=== PATIENT | female | born 1990 | race Caucasian/White ===

== ENCOUNTER 2024-07-04 07:23 | Outpatient (AMB) | payer OTHER, SELFPAY ==
--- NOTE | 2024-07-04 07:42 | MHC.PC.OV ---
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 Required: No Accompanied by: Self / Same As Patient Allergies No Known Allergies Allergy (Verified 07/04/24 07:54) Medication List - Last Reconciled 07/04/24 by Sapphire Estrella MD desog-e.estradiol/e.estradiol 0.15-0.02 mgx21 /0.01 mg x 5 tabs PO Tobacco use date assessed: 07/04/24 Dental Screening Dental Screen Date: 07/04/24 Did you have a dental visit in the last 12 months?: Yes Did you have a dental problem in the last 6 months where you did not have access to dental care?: No Was dental information given to patient?: Patient has dentist HPI HPI Comments History of Present Illness Details The patient is a 33-year-old female presenting with mental health concerns, particularly depression and anxiety. She describes ongoing depressive symptoms inclusive of irritability, frequent crying, and a lack of motivation to perform activities despite having personal objectives. Her history includes depression treated with Zoloft, which she discontinued due to perceived inefficacy and withdrawal symptoms. She seeks to reinitiate a medication regimen with alternative antidepressants. The patient also reports a persistent itch in her right breast but no palpable lumps. She has a significant family history of breast cancer, with her mother and aunt having tested positive for the BRCA2 gene and her mother undergoing a preventative double mastectomy. The patient herself has tested negative for the BRCA2 gene. She has not experienced unusual breast changes, but her concern persists. REPLACED BY [facility] Surgical History No pertinent past surgical history Family History Father Cancer Family/Other Mental health disorder Social History Housing: House Alcohol intake: current Alcohol intake frequency: a few times a month Alcohol type: wine Patient Tobacco Use Status: Never used Tobacco e-Cigarette/Vaping Use: Never Used Second Hand Smoke Exposure: No service: No Current occupational status: employed Current occupational exposures/hazards: No Cognitive needs: No Hearing needs: No Vision needs: No Questionnaire PHQ-9 Over the last 2 weeks, how often have you been bothered by any of the following problems? 1. Little interest or pleasure in doing things: more than half the days 2. Feeling down, depressed, or hopeless: nearly every day 3. Trouble falling or staying asleep, or sleeping too much: nearly every day 4. Feeling tired or having little energy: nearly every day 5. Poor appetite or overeating: not at all 6. Feeling bad about yourself - or that you are a failure or have let yourself or your family down: several days 7. Trouble concentrating on things, such as reading the newspaper or watching television: not at all 8. Moving or speaking so slowly that other people could have noticed. Or the opposite - being so fidgety or restless that you have been moving around a lot more than usual: not at all 9. Thoughts that you would be better off or of hurting yourself in some way: several days Total score: 13 Depression Screening Interpretation: Positive Depression Screening Follow-up: Existing condition, Community Mental Health Worker F/U and Follow-up Visit Requested Depression Screening Done: Yes Source: Developed by Drs. Cecilio Combs, Halie Christopher, Ray Haynes and colleagues, with an educational alysia from [employer]. Thrive Questionnaire Date Thrive assessed: 07/03/24 I am a: Patient What is your living situation today?: I have a steady place to live Within the past 12 months, did the food you bought not last and you didn't have the money to get more?: Never true Within the past 12 months, did you worry whether your food would run out before you got money to buy more?: Never true Do you have trouble paying for medicines?: No Do you have trouble getting transportation to medical appointments?: No Do you have trouble paying your heating and electricity bill?: No Do you have trouble taking care of your child, family member or friend?: No Do you have trouble with day-to-day activities such as bathing, preparing meals, shopping, managing finances, etc.?: No Are you currently unemployed and looking for a job?: I choose not to answer this question Are you interested in more education?: No Please select the resources that you would like help with: None Currently or been in a relationship where the following occur: No concerns reported THRIVE Score: 0 AUDIT C Alcohol Use Questionnaire (AUDIT-C) 1. How often do you have a drink containing alcohol?: 2-4 times a month 2. How many drinks containing alcohol do you have on a typical day when you are drinking?: 1 or 2 3. How often do you have six or more drinks on one occasion?: Never Total Score: 2 Score Reviewed/Action Taken: No JAMES-7 AMB Questionnaire JAMES-7 Date JAMES - 7 assessed: 07/04/24 Feeling nervous, anxious, or on edge: 0 = Not at all Not being able to stop or control worryin = Not at all Worrying too much about different things: 0 = Not at all Trouble relaxin = More than half the days Being so restless that it is hard to sit still: 0 = Not at all Becoming easily annoyed or irritable: 3 = Nearly every day Feeling afraid as if something awful might happen: 0 = Not at all Total JAMES-7 score (0-4 normal; 5-9 mild; 10-14 moderate; 15-21 severe): 5 Source: Developed by Drs. Cecilio Combs, Halie Christopher, Ray Haynes and colleagues, with an educational alysia from [employer]. JAMES-7 Assessment Billing JAMES-7 Assessment Tool: JAMES-7 Assessment 12668 Review of Systems Const All systems reviewed & are unremarkable except as noted in HPI and below Card Denies chest pain at rest, Denies chest pain with activity, Denies edema, Denies irregular heart rhythm, Denies claudication, Denies dyspnea, Denies dyspnea on exertion, Denies orthopnea, Denies paroxysmal nocturnal dyspnea and Denies slow heart rate Resp Denies cough, Denies dyspnea and Denies dyspnea on exertion Musc Denies abnormal gait, Denies atrophy, Denies deformity and Denies limited range of motion Skin/Breast Denies bleeding lesions, Denies changing lesions, Reports pruritus and Denies rash Neuro Denies abnormal gait, Denies behavioral changes and Denies lack of coordination Psych Denies behavioral changes Physical exam (Primary Care) Vital Signs: Last Vital Signs BP 112/70 07/04/24 07:43 BMI result Body Mass Index 21.8 Tobacco/Smoking Status: Tobacco use Status Tobacco use date assessed 07/04/24 07/04/24 07:48 Patient Tobacco Use Status Never used Tobacco 07/04/24 07:48 e-Cigarette/Vaping Use Never Used 07/04/24 07:48 PHQ-9: PHQ-9 Score PHQ-9: Total score 13 07/04/24 07:51 Depression Screening Interpretation: Positive Depression Screening Follow-up: Existing condition, Community Mental Health Worker F/U and Follow-up Visit Requested Thrive Assessment: Date of Thrive Assessment Date Thrive assessed 07/03/24 07/04/24 07:48 Currently or been in a relationship where the following occur: No concerns reported Chest Breast/axilla inspection: normal inspection of the breasts and normal inspection of the axillae Breast/axilla palpation: normal palpation of the axillae and abnormal palpation of the breast (left anomaly at 1 o'clock and right at 11 o'clock) Resp Effort & Inspection: normal respiratory effort Auscultation: clear to auscultation bilaterally Cardio Jugular venous distension: no JVD Rate: regular rate Rhythm: regular rhythm Heart sounds: S1 normal heart sound present and S2 normal heart sound present Extrem General: Yes full ROM Psych Appearance: grossly normal Coding Level of Care Code New Pt Level 3 (64106) Complex EM visit Add On G2211 Diagnoses Moderate recurrent major depression F33.1 JAMES (generalized anxiety disorder) F41.1 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 Additional Codes JAMES-7 Assessment Billing - JAMES-7 Assessment Tool: JAMES-7 Assessment 43381 ([id number]) Time Spent (min) 22 Assessment & Plan Assessment & Plan (1) Moderate recurrent major depression: Code(s): F33.1 - Major depressive disorder, recurrent, moderate Category: Medical (2) JAMES (generalized anxiety disorder): Code(s): F41.1 - Generalized anxiety disorder Category: Medical (3) 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 Conducted a breast examination revealing itchiness with no lumps, recommending OB-WIRE PHOTO OPERATOR NEWS referral given the significant family history of breast cancer and consideration for further imaging based on future symptoms and guideline updates. Ensure the patient's vaccinations are current and monitor for the need for dermatology consultations. Patient was informed and verbally consented to the use of an ambient scribe for clinic note documentation during this visit. I discussed with the patient the switch to Wellbutrin for her depression and anxiety, explaining its different action mechanism compared to Zoloft (an SSRI). We agreed to refer her to Psychiatric Outpatient Services for further assessment and care. The potential benefits of Wellbutrin, including improved motivation and decreased sedation compared to SSRIs, were explained. Regarding breast health, I addressed the persistent itch and significant family history, leading to an agreement on a referral to an OB-WIRE PHOTO OPERATOR NEWS for further assessment and consideration of imaging studies, adhering to mammogram guidelines and reimbursement stipulations. I educated her about the importance of ongoing breast self-awareness, keeping in line with her family history. Additionally, the patient inquired about dermatology assessments, which I advised would require a specific reason or concern to pursue. 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 - Remain vigilant about any new breast symptoms and follow-up with OB-WIRE PHOTO OPERATOR NEWS for evaluation and potential imaging. - Keep vaccinations current and discuss any skin changes with a research dietitian if needed. - Maintain current lifestyle practices, including the use of oral contraceptives and avoiding tobacco. - Seek care promptly if experiencing worsening depressive symptoms or new concerning breast changes.
[2024-07-04 07:43] VITALS: BP 112/70; BMI 21.8
== END 2024-07-04 08:25 | disposition home or self-care (01) ==
PROVIDERS: PCP Internal Medicine; Visit Provider Internal Medicine
DX: F33.1 Major depressive disorder, recurrent, moderate (principal); F41.1 Generalized anxiety disorder; Q83.9 Congenital malformation of breast, unspecified

== ENCOUNTER → 2024-07-04 07:23 | Outpatient (BNVA) | payer OTHER, SELFPAY | PROVIDERS: PCP Internal Medicine; Visit Provider Internal Medicine | DX: F33.1 Major depressive disorder, recurrent, moderate (principal); F41.1 Generalized anxiety disorder; Q83.9 Congenital malformation of breast, unspecified | CPT/HCPCS: 96127 ==

== ENCOUNTER 2024-08-14 08:52 | Outpatient (REF) | payer OTHER, SELFPAY ==
--- NOTE | ~2024-08-14 | MM_ITS ---
EXAMINATION: MM DIAGNOSTIC DIGITAL BREAST TOMOSYNTHESIS, BILATERAL CLINICAL INFORMATION: 34-year-old female with strong family history of breast cancer patient's mother is BRCA2 positive and had a double mastectomy. Maternal grandmother and maternal aunt also BRCA positive. Bilateral clinical symptoms left 1:00 and right 11:00. COMPARISON: Mammography: Baseline mammogram. TECHNIQUE: Digital breast mammography with tomosynthesis is performed in both the craniocaudal and mediolateral oblique views along with computer-aided detection (CAD). FINDINGS: The breasts are heterogeneously dense, which may obscure small masses (ACR BI-RADS breast composition Category c). There are no significant masses, abnormal calcifications, or other abnormalities. Targeted color Doppler ultrasound scanning in the right breast upper outer quadrant and left breast upper outer quadrant in the areas indicated on the physician order form for clinical symptoms demonstrates normal fibroglandular breast tissue. There is no sonographic abnormality. Results are provided to the patient at time of visit by the technologist. MM/MM tomosynthesis diagnostic BI IMPRESSION: No mammographic or sonographic abnormalities to account for the clinical symptoms left breast 1:00 right breast 11:00. Recommend clinical evaluation follow-up. Recommend yearly mammographic screening due to high risk. Consider breast MRI screening surveillance given strong family history of breast cancer. Breast MRI would need to be ordered by the patient's providing clinician. ASSESSMENT: BI-RADS BI-RADS 1 - Negative RECOMMENDATION: 1 year F/U This patient's information was entered into a reminder system with a target due date for their next mammogram. Electronically signed by: Francia Brown DO 08/14/2024 03:05 PM EDT
== END 2024-08-14 08:53 | disposition home or self-care (01) ==
LOC: HO.MAMMO 08:52
PROVIDERS: PCP Internal Medicine; Visit Provider Internal Medicine
DX: Q83.9 Congenital malformation of breast, unspecified (principal); Z80.3 Family history of malignant neoplasm of breast; R92.8 Other abnormal and inconclusive findings on diagnostic imaging of breast
CPT/HCPCS: 76642; 77062; 77066

== ENCOUNTER → 2024-08-14 09:30 | Outpatient (BNV) | payer OTHER, SELFPAY | PROVIDERS: PCP Internal Medicine; Visit Provider Internal Medicine | DX: N64.89 Other specified disorders of breast (principal); Z80.3 Family history of malignant neoplasm of breast | CPT/HCPCS: 76642; 77062; 77066 ==

== ENCOUNTER 2024-09-06 10:01 | Outpatient (REF) | payer OTHER, SELFPAY ==
[2024-09-13 10:23] LABS: HPV Genotype 16 Negative (Negative); HPV Genotype 18 Negative (Negative); HPV High Risk Negative (Negative)
== END 2024-09-06 10:02 | disposition home or self-care (01) ==
LOC: HO.LNP 10:01
PROVIDERS: PCP Internal Medicine; Visit Provider Advanced Practice Midwife
DX: Z01.419 Encounter for gynecological examination (general) (routine) without abnormal findings (principal)
CPT/HCPCS: 87626; 88175

== ENCOUNTER 2024-09-06 10:01 | Outpatient (AMB) | payer OTHER, SELFPAY ==
--- NOTE | 2024-09-06 10:02 | A.OFFVIS_ITS ---
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 For most of her life she used fertility awareness as her method of control and avoided all artificial and hormonal methods of control. 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 She has been on combination control pills that she started in March and she took them sequentially for a couple of months and had a withdrawal bleed in May and she has been on them sequentially skipping the inactive week since then and she is very happy with this method. She feels like it is the best decision she has made for herself. 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 She used to use tampons and menstrual cups for menstrual support but has not found them comfortable since childbirth so that is another reason she likes avoiding her period If she can She is a strong family history of breast cancer including her grandfather who had breast cancer and other daughters from that line of the family there is a family member tested positive for BRCA2. She herself got tested for the BRCA gene and was tested negative in 2013. She just recently had her 1st screening mammogram and she is very happy that it was negative. Patient is in the process of legally changing her name to Gail, she has submitted and made all the changes with social security but the family health insurance is still using the name of Marlen, so all her health records are under Marlen, for the moment but we will be change in when the changes go through.(I did ask her to reference both names in any communications or inquiries regarding her health and these records to avoid confusion.) [facility] Surgical History No pertinent past surgical history Family History Father Cancer Family/Other Mental health disorder Mother Breast cancer Maternal Aunt Breast cancer Maternal Grandfather No problems noted. Social History Housing: House Alcohol intake: current Alcohol intake frequency: a few times a month Alcohol type: wine Patient Tobacco Use Status: Never used Tobacco e-Cigarette/Vaping Use: Never Used Second Hand Smoke Exposure: No service: No Current occupational status: employed Current occupational exposures/hazards: No Cognitive needs: No Hearing needs: No Vision needs: No Female Reproductive History Menstrual Age of Menarche: 11 Duration of menses: 6-7 days Date of last menstrual period: 05/23/24 control method: pills Total pregnancies: 1 Full term: 1 History of abnormal pap smear: No History of STI: No Date of Mammogram: 08/14/24 (bi rad 1) History of abnormal mammogram: No Physical Exam Vital Signs: Last Vital Signs BP 114/70 09/06/24 10:10 BMI result Body Mass Index 21.8 Const General: healthy appearing, comfortable, no acute distress, well developed and alert Nutritional Appearance: average body habitus Orientation/consciousness: patient oriented x3 Limitations: no limitations HEENT Head: Yes normocephalic Neck Neck: Yes normal visual inspection Chest Chest palpation & inspection: normal inspection of the chest Breast/axilla inspection: normal inspection of the breasts and normal inspection of the axillae Breast/axilla palpation: normal palpation of the breasts and normal palpation of the axillae Resp Effort & Inspection: normal respiratory effort GI Inspection: Yes normal to inspection, No Abdominal wall edema and No distended Palpation (GI): Soft to palpation and nontender Other: External exam within normal limits vagina pink and moist cervix multiparous pink smooth healthy appearing scant discharge consistent with OCP use uterus small tilts very slightly retroverted but not retroflexed mobile and nontender adnexa nontender nonenlarged. fair tone with Kegel. General: Yes bladder normal to palpation External Female Exam: normal external appearance and normal appearance of the urethra Speculum Exam - Vagina: normal appearance of the vagina, normal palpation and normal vaginal discharge Speculum Exam - Cervix: normal appearance of the cervix, normal palpation and nontender Bimanual exam- vagina & uterus: normal bimanual exam, normal palpation, uterine size normal, bladder normal to palpation, consistency normal, normal palpation, uterine mobility normal, uterine shape normal, No Cervical tenderness present, non-tender and no cervical motion tenderness Bimanual Exam- Adnexa, other: normal adnexae, no masses, normal and No adnexal tenderness Neuro General: patient oriented x3 Assessment & Plan Assessment & Plan (1) Screening for cervical cancer: Code(s): Z12.4 - Encounter for screening for malignant neoplasm of cervix Category: Medical (2) Family history of breast cancer: Code(s): Z80.3 - Family history of malignant neoplasm of breast Category: Medical (3) Counseling for control, oral contraceptives: Code(s): Z30.09 - Encounter for other general counseling and advice on contraception Category: Medical (4) Well woman exam with routine gynecological exam: Code(s): Z01.419 - Encounter for gynecological examination (general) (routine) without abnormal findings Category: Medical (5) Pelvic floor relaxation: Code(s): N81.89 - Other female genital prolapse Category: Medical Plan -----Discussed in this visit the following: healthy balanced diet, regular and consistent exercise, getting recommended health screens, doing the best she can for her particular health concerns, kegel exercises, pap smear screening and followup recommendations, mammography screening and SBE, normal changes in cycles in her life stage--- . Patient is very happy to have had her screening mammogram done and she already had perceived the BRCA testing herself in 2013.. She is also very happy that she started on the oral contraceptive pills and she feels it made a big difference in her life. She has not gotten the migraines that were of concern in any regular basis at all in recent years. She finds having periods very uncomfortable they used to be 7 days long and ever since she gave wearing tampons or menstrual cup has not been comfortable for her and she wears underwear and since her menses now with the pills, when she gets them are so light she can just wear underwear and wash it out. She has chosen to allow herself a withdrawal bleed in May but has been on the pills continuously since then. And we did discuss options she certainly could continue with continuous use but I did warn her that very many women aim for this and yet have an unscheduled breakthrough bleed that is more difficult to then manage and sometimes it might be preferable to actually schedule a withdrawal bleed when it is right for her and therefore preempt/prevent the problem. Prescription in the system was for just the name of the pills. I have prescribed them in three-month lots with 4 refills and wrote on it to skip the in active pills and the patient may elect to take them that way or occasionally have a scheduled withdrawal bleed. Discussed her discomfort with the tampons and menstrual cups, since childbirth discussed Kegel's her tone with attempting a Kegel was fair. I am giving her written information on doing Kegel's and I offered to send a referral for pelvic floor therapy as well She wanted to have a Pap smear as she is not exactly 100% certain when the last 1 but she thinks it might of been with the of her daughter. she does not remember having a abnormal, and she has no concerns or worries about STIs and declines STI testing. RTC 1 Orders: Referrals Pelvic Baked And Graphite Inspector Referral M62.89 - Other specified disorders of muscle Medications: New desog-e.estradiol/e.estradiol 0.15-0.02 mgx21 /0.01 mg x 5 desogestrel-e.estradiol 0.15 mg-0.02 mg(21)/e.estrad 0.01 mg(5) tablet, to be taken sequentially skipping the inactive pills. 1 tab PO DAILY 84 tabs 4RF Coding Level of Care Code New Pt Prev Care 18-39yr(13560 Diagnoses Screening for cervical cancer Z12.4 Family history of breast cancer Z80.3 Counseling for control, oral contraceptives Z30.09 Well woman exam with routine gynecological exam Z01.419 Pelvic floor relaxation N81.89
[2024-09-06 10:10] VITALS: BP 114/70; BMI 21.8
== END 2024-09-06 11:13 | disposition home or self-care (01) ==
LOC: HO.HWSM 10:01
PROVIDERS: PCP Internal Medicine; Visit Provider Advanced Practice Midwife
DX: Z01.419 Encounter for gynecological examination (general) (routine) without abnormal findings (principal); N81.89 Other female genital prolapse; Z30.09 Encounter for other general counseling and advice on contraception; Z80.3 Family history of malignant neoplasm of breast
CPT/HCPCS: 99385; 99459

== ENCOUNTER 2024-10-17 16:01 | Outpatient (AMB) | payer OTHER, SELFPAY ==
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
== END 2024-10-17 17:00 | disposition home or self-care (01) ==
LOC: HO.HOP 16:01
PROVIDERS: PCP Internal Medicine; Visit Provider Clinical Nurse Specialist Psychiatric/Mental Health, Adult
DX: F43.10 Post-traumatic stress disorder, unspecified (principal); F39 Unspecified mood [affective] disorder
CPT/HCPCS: 99203

== ENCOUNTER → 2024-10-17 16:01 | Outpatient (BNVA) | payer OTHER, SELFPAY | PROVIDERS: PCP Internal Medicine; Visit Provider Clinical Nurse Specialist Psychiatric/Mental Health, Adult ==

== ENCOUNTER 2024-12-20 16:35 | Outpatient (AMB) | payer OTHER, SELFPAY ==
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
== END 2024-12-20 16:58 | disposition home or self-care (01) ==
LOC: HO.HOP 16:35
PROVIDERS: PCP Internal Medicine; Visit Provider Clinical Nurse Specialist Psychiatric/Mental Health, Adult
DX: F39 Unspecified mood [affective] disorder (principal); F43.10 Post-traumatic stress disorder, unspecified
CPT/HCPCS: 99213

== ENCOUNTER 2025-01-25 15:01 | Outpatient (AMB) | payer OTHER, SELFPAY ==
[2025-01-25 15:29] VITALS: BP 126/88; PULSE 66; O2SAT 98; BMI 22.6
--- NOTE | 2025-01-25 15:29 | A.OFFPC_ITS ---
Vital Signs 01/25/25 15:29 Height 5 ft 8.11 in Weight 149 lb 2 oz BMI 22.6 BP 126/88 Blood Pressure Location Lt femoral Position Sitting Pulse 66 Pulse Source Pulse Oximeter Pulse Oximetry (%) 98 Oxygen Delivery Method Room Air Intake Visit Reasons: annual exam Wheel Truer Required: No Accompanied by: Self / Same As Patient Allergies No Known Allergies Allergy (Verified 01/25/25 15:52) Medication List - Last Reconciled 01/25/25 by Sapphire Estrella MD desog-e.estradiol/e.estradiol 0.15-0.02 mgx21 /0.01 mg x 5 tabs PO desog-e.estradiol/e.estradiol 0.15-0.02 mgx21 /0.01 mg x 5 1 tab PO DAILY lamotrigine (Lamictal) 150 mg PO DAILY Tobacco use date assessed: 01/25/25 Dental Screening Dental Screen Date: 01/25/25 Did you have a dental visit in the last 12 months?: Yes Did you have a dental problem in the last 6 months where you did not have access to dental care?: No Was dental information given to patient?: Patient has dentist HPI HPI Comments History of Present Illness Details The patient is a 34-year-old female presenting for a routine physical examination and preventative care assessment. She is currently on lamotrigine 150 mg for mood disorder and post-traumatic stress disorder, managed by Keena Rogel, with a follow-up scheduled in January. There is no history of surgeries, and she is not allergic to any medications. Her family history is significant for BRCA2 positive status in her mother, who underwent a double mastectomy, although it is unclear if she had breast cancer. Additionally, her maternal grandfather had breast cancer, which is rare in males but associated with the BRCA2 gene. The patient denies any chest pain, shortness of breath, or urinary issues. She consumes alcohol in moderation, having a glass of wine most nights. [facility] Medical History (Updated 01/25/25 @ 16:04 by Sapphire Estrella MD) Mood disorder PTSD (post-traumatic stress disorder) Surgical History No pertinent past surgical history Family History (Updated 01/25/25 @ 15:58 by Sapphire Estrella MD) Father Cancer Family/Other Mental health disorder Mother BRCA2 positive Maternal Aunt Breast cancer Maternal Grandfather No problems noted. Maternal Grandfather Breast cancer Social History Housing: House Alcohol intake: current Alcohol intake frequency: a few times a month Alcohol type: wine Patient Tobacco Use Status: Never used Tobacco e-Cigarette/Vaping Use: Never Used Second Hand Smoke Exposure: No service: No Current occupational status: employed Current occupational exposures/hazards: No Cognitive needs: No Hearing needs: No Vision needs: No Female Reproductive History Menstrual Age of Menarche: 11 Questionnaire Thrive Questionnaire Date Thrive assessed: 07/03/24 I am a: Patient What is your living situation today?: I have a steady place to live Within the past 12 months, did the food you bought not last and you didn't have the money to get more?: Never true Within the past 12 months, did you worry whether your food would run out before you got money to buy more?: Never true Do you have trouble paying for medicines?: No Do you have trouble getting transportation to medical appointments?: No Do you have trouble paying your heating and electricity bill?: No Do you have trouble taking care of your child, family member or friend?: No Do you have trouble with day-to-day activities such as bathing, preparing meals, shopping, managing finances, etc.?: No Are you currently unemployed and looking for a job?: I choose not to answer this question Are you interested in more education?: No Please select the resources that you would like help with: None Currently or been in a relationship where the following occur: No concerns reported THRIVE Score: 0 AUDIT C Alcohol Use Questionnaire (AUDIT-C) 1. How often do you have a drink containing alcohol?: 4 or more times a week 2. How many drinks containing alcohol do you have on a typical day when you are drinking?: 1 or 2 3. How often do you have six or more drinks on one occasion?: Never Total Score: 4 Score Reviewed/Action Taken: No JAMES-7 AMB Questionnaire JAMES-7 Date JAMES - 7 assessed: 07/04/24 Source: Developed by Drs. Cecilio Combs, Halie B.Ray Ham and colleagues, with an educational alysia from [employer]. Review of Systems Const All systems reviewed & are unremarkable except as noted in HPI and below Card Denies chest pain at rest, Denies chest pain with activity, Denies edema, Denies irregular heart rhythm, Denies claudication, Denies dyspnea, Denies dyspnea on exertion, Denies orthopnea, Denies paroxysmal nocturnal dyspnea and Denies slow heart rate Resp Denies cough, Denies dyspnea and Denies dyspnea on exertion Physical exam (Primary Care) Vital Signs: Last Vital Signs Pulse 66 01/25/25 15:29 BP 126/88 01/25/25 15:29 Pulse Ox 98 01/25/25 15:29 Oxygen Delivery Method Room Air 01/25/25 15:29 BMI result Body Mass Index 22.6 Tobacco/Smoking Status: Tobacco use Status Tobacco use date assessed 01/25/25 01/25/25 15:34 Patient Tobacco Use Status Never used Tobacco 01/25/25 15:34 e-Cigarette/Vaping Use Never Used 01/25/25 15:34 Thrive Assessment: Date of Thrive Assessment Date Thrive assessed 07/03/24 01/25/25 15:34 Currently or been in a relationship where the following occur: No concerns reported HENCO Head: Yes normal to inspection, Yes normocephalic and Yes atraumatic Ears: external ears normal Eyes General: appearance normal, both eyes and all related structures Eyelids: Yes eyelids normal Conjunctivae: conjunctivae normal Neck Neck: Yes normal visual inspection and Yes supple Resp Effort & Inspection: normal respiratory effort Auscultation: clear to auscultation bilaterally Cardio Jugular venous distension: no JVD Rate: regular rate Rhythm: regular rhythm Heart sounds: S1 normal heart sound present and S2 normal heart sound present GI Inspection: Yes normal to inspection Palpation (GI): Soft to palpation and nontender Auscultation: normal bowel sounds Skin General skin exam: no rashes or lesions noted Neuro General: no focal motor deficits Extrem General: Yes full ROM Psych Appearance: grossly normal Coding Level of Care Code Est Pt Prev Care 18-39y(99552) Diagnoses Physical exam Z00.00 Mood disorder F39 Time Spent (min) 30 Assessment & Plan Assessment & Plan (1) Physical exam: Code(s): Z00.00 - Encounter for general adult medical examination without abnormal findings Category: Medical (2) Mood disorder: Code(s): F39 - Unspecified mood [affective] disorder Category: Medical Plan Plan Patient was informed and verbally consented to the use of an ambient scribe for clinic note documentation during this visit. 1. Mood Disorder The patient is currently managed on lamotrigine 150 mg for mood disorder, with follow-up care scheduled with Keena Rogel in January. 2. Post-Traumatic Stress Disorder (Ptsd) The patient is on lamotrigine 150 mg for PTSD, with ongoing management by Keena Rogel and a follow-up appointment in January. 3. Brca2 Positive Status The patient is aware of her BRCA2 positive status in her family, with preventative measures including a mammogram already performed. 4. Family History Of Breast Cancer The patient has a significant family history of breast cancer, with her mother being BRCA2 positive and having undergone a double mastectomy. 5. Family History Of Male Breast Cancer The patient's maternal grandfather had breast cancer, which is rare in males but associated with the BRCA2 gene. Orders: Orders Comprehensive [place]. Panel Fast Today Z00.00 - Encounter for general adult medical examination without abnormal findings Lipid Panel Today Z00.00 - Encounter for general adult medical examination without abnormal findings
== END 2025-01-25 16:09 | disposition home or self-care (01) ==
LOC: HO.HMCH 15:02
PROVIDERS: PCP Internal Medicine; Visit Provider Internal Medicine
DX: Z00.00 Encounter for general adult medical examination without abnormal findings (principal); F39 Unspecified mood [affective] disorder

== ENCOUNTER 2025-02-01 13:00 | Outpatient (AMB) | payer OTHER, SELFPAY ==
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
== END 2025-02-01 13:38 | disposition home or self-care (01) ==
LOC: HO.HOP 13:00
PROVIDERS: PCP Internal Medicine; Visit Provider Clinical Nurse Specialist Psychiatric/Mental Health, Adult
DX: F41.1 Generalized anxiety disorder (principal); F43.10 Post-traumatic stress disorder, unspecified; F39 Unspecified mood [affective] disorder
CPT/HCPCS: 99213

== ENCOUNTER 2025-03-01 14:14 | Outpatient (AMB) | payer OTHER, SELFPAY ==
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
== END 2025-03-01 14:15 | disposition home or self-care (01) ==
LOC: HO.HOP 14:14
PROVIDERS: PCP Internal Medicine; Visit Provider Clinical Nurse Specialist Psychiatric/Mental Health, Adult
DX: F43.11 Post-traumatic stress disorder, acute (principal); F41.1 Generalized anxiety disorder; F39 Unspecified mood [affective] disorder
CPT/HCPCS: 99213

== ENCOUNTER 2025-03-28 13:49 | Outpatient (AMB) | payer OTHER, SELFPAY ==
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
== END 2025-03-28 13:49 | disposition home or self-care (01) ==
LOC: HO.HOP 13:49
PROVIDERS: PCP Internal Medicine; Visit Provider Clinical Nurse Specialist Psychiatric/Mental Health, Adult
DX: F39 Unspecified mood [affective] disorder (principal); F43.10 Post-traumatic stress disorder, unspecified; F41.1 Generalized anxiety disorder
CPT/HCPCS: 99213